=== PATIENT | male | born 1985 | race African-American/Black ===

== ENCOUNTER 2016-11-15 04:30 | Emergency (ER) | payer OTHER ==
[~2016-11-15] VITALS: Ht 170.2 cm; Wt 70.3 kg
--- NOTE | ~2016-11-15 | EKG ---
[place] [address] [facility] [employer] [address] ELECTROCARDIOGRAM REPORT Name: LEV HENDRICKS [facility] #: [facility] [id number] Admission: 11/15/16 Attend Phys: Discharge: 11/15/16 Date of : 89 Report #: [id number] THIS REPORT FOR: //name// [facility] ED Test Date: 2016-11-15 Test Time: 04:36:44 Pat Name: LEV HENDRICKS Department: Room: Gender: M Cell Room Supervisor: STEFANIE : 1985 Requested By: Leonard Hodge Order Number: [id number] MD: Devendra Houston Measurements Intervals [place] Rate: 93 P: 82 WI: 136 QRS: 79 QRSD: 72 T: 71 QT: 335 QTc: 417 Interpretive Statements Sinus rhythm No significant abnormality No previous ECG available for comparison Electronically Signed On 11-16-2016 7:47:14 CDT by Devendra Houston [email or web address] <ELECTRONICALLY SIGNED> By: Devendra Houston MD, [facility] 11/16/16 0747 [id number] [id number] Devendra Houston MD, FACC /EPI
[~2016-11-15 04:30] MED LIST: ACYCLOVIR 800800 MG PO; CIPROFLOXACIN500 M1 PO; IBUPROFEN 800800 MG PO; NORCO 5-325 TA1 EACH PO
[2016-11-15 04:54] LABS: ABSOLUTE NEUTROPHILS 5.5 thou/uL (1.4-8.2); BASOPHILS 0.9 % (0.0-2.0); EOSINOPHILS 0.9 % (0.0-3.0); HEMATOCRIT 44.9 % (42.0-52.0); HEMOGLOBIN 15.6 gm/dL (14.0-18.0); LYMPHOCYTES 35.6 % (24.0-44.0); MCHC 34.8 g/dL (28.0-37.0); MCV 92.1 fL (80.0-100.0); MONOCYTES 8.6 % (1.0-8.0); PLATELET COUNT 186 thou/uL (150-400); RBC 4.87 mil/uL (4.50-6.00); RDW 12.7 % (10.5-14.5); WBC 10.1 thou/uL (4.0-11.0)
[2016-11-15 04:57] LABS: MANUAL DIFF NO
[2016-11-15 05:10] LABS: ALBUMIN 4.5 g/dL (3.4-5.0); ALKALINE PHOSPHATASE 72 U/L (46-116); ANION GAP 13 mmol/L (7-16); BUN 11 mg/dL (7-18); CALCIUM 9.7 mg/dL (8.5-10.1); CHLORIDE 100 mmol/L (98-107); CO2 24 mmol/L (21-32); CREATININE 1.2 mg/dL (0.7-1.3); GLUCOSE 118 mg/dL (74-106); POTASSIUM 3.5 mmol/L (3.5-5.1); SALICYLATE 3.3 mg/dL (2.8-20.0); SGOT 23 U/L (15-37); SGPT 25 U/L (30-65); SODIUM 137 mmol/L (136-145); TOTAL BILIRUBIN 0.6 mg/dL (<0.1-1.0); TOTAL PROTEIN 8.2 g/dL (6.4-8.2); TROPONIN-I < 0.04 ng/mL (<0.04-0.07)
[2016-11-15 05:17] LABS: ACETAMINOPHEN < 2 ug/mL (10-30)
[2016-11-15] MEDS ORDERED: NAPROXEN375 MG PO (05:26)
[2016-11-15 05:28] LABS: URINE BILIRUBIN NEGATIVE (Negative); URINE BLOOD NEGATIVE (Negative); URINE COLOR YELLOW; URINE GLUCOSE-RANDOM* NEGATIVE (Negative); URINE KETONES NEGATIVE (Negative); URINE LEUKOCYTES-REFLEX NEGATIVE (Negative); URINE PROTEIN (DIPSTICK) NEGATIVE (Negative); URINE SPECIFIC GRAVITY <= 1.005 (1.003-1.035); URINE UROBILINOGEN 0.2 E.U./dl (0.2-1.0)
[2016-11-15 05:33] LABS: AMP/METHAMP POSITIVE (Negative); BARBITURATES Negative (Negative); BENZODIAZEPINES Negative (Negative); COCAINE Negative (Negative); METHADONE Negative (Negative); OPIATES Negative (Negative); PCP Negative (Negative); THC POSITIVE (Negative)
[2016-11-15 05:43] VITALS: BP 110/81
== END 2016-11-15 05:44 | disposition home or self-care (01) ==
LOC: ER 04:30
PROVIDERS: Emergency Medicine
DX: R07.89 Other chest pain (principal); F19.10 Other psychoactive substance abuse, uncomplicated; J45.909 Unspecified asthma, uncomplicated; Z91.013 Allergy to seafood; Z91.041 Radiographic dye allergy status; F17.210 Nicotine dependence, cigarettes, uncomplicated; F10.99 Alcohol use, unspecified with unspecified alcohol-induced disorder

== ENCOUNTER 2019-11-10 09:10 | Inpatient (IN) | payer OTHER ==
[~2019-11-10] VITALS: Ht 170.2 cm; Wt 70.3 kg
[~2019-11-10 09:10] MED LIST changes: +NAPROXEN375 MG PO
[2019-11-10 09:11] VITALS: BP 123/78
[2019-11-10 10:04] LABS: ABSOLUTE NEUTROPHILS 12.1 thou/uL (1.4-8.2); BASOPHILS 0.8 % (0.0-2.0); EOSINOPHILS 2.1 % (0.0-3.0); HEMOGLOBIN 13.6 gm/dL (14.0-18.0); LYMPHOCYTES 17.9 % (24.0-44.0); MCH 31.5 pg (26.0-34.0); MCV 92.5 fL (80.0-100.0); MONOCYTES 5.4 % (1.0-8.0); PLATELET COUNT 286 thou/uL (150-400); POLYS 73.8 % (36.0-66.0); RBC 4.32 mil/uL (4.50-6.00); RDW 12.8 % (10.5-14.5); WBC 16.4 thou/uL (4.0-11.0)
[2019-11-10 10:19] LABS: ANION GAP 12 mmol/L (7-16); BUN 17 mg/dL (7-18); CALCIUM 9.4 mg/dL (8.5-10.1); CHLORIDE 101 mmol/L (98-107); CO2 25 mmol/L (21-32); CREATININE 1.1 mg/dL (0.7-1.3); GLUCOSE 146 mg/dL (74-106); SODIUM 138 mmol/L (136-145)
[2019-11-10 10:20] LABS: POTASSIUM 4.1 mmol/L (3.5-5.1)
[2019-11-10 10:25] LABS: ALBUMIN 3.7 g/dL (3.4-5.0); DIRECT BILIRUBIN < 0.1 mg/dL (<0.1-0.2); SGOT 25 U/L (15-37); SGPT 31 U/L (30-65); TOTAL BILIRUBIN 0.4 mg/dL (<0.1-1.0); TOTAL PROTEIN 7.5 g/dL (6.4-8.2)
[2019-11-10 12:52] VITALS: BP 127/80
[2019-11-10 14:17] VITALS: BP 131/87
[2019-11-10 16:10] VITALS: BP 123/77
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
[2019-11-10 19:59] VITALS: BP 134/83
--- NOTE | 2019-11-11 01:19 | NUR ---
PT AOX4. PT LETHARGIC AND DROWSY DURING ASSESSMENT. PT REPORTS PAIN IN RIGHT THIGH. PT RECEIVING PRN PO NORCO Q4HR. PT TOLERATING PO INTAKE OF FLUIDS AND REGULAR DIET, PT NPO AT MIDNIGHT. PT REFUSING WOUND CARE AT HS, REQUESTS WOUND CARE IN AM. PT NOTED TO BE INDEPENDENT WITH REPOSITIONING. PT ENCOURAGED TO NOTIFY STAFF FOR ALL NEEDS. CALL LIGHT WITHIN REACH, BED IN LOWEST POSITION, BED ALARM ON. WILL CONTINUE TO MONITOR.
[2019-11-11 04:35] VITALS: BP 121/65
[2019-11-11 05:32] LABS: ABSOLUTE NEUTROPHILS 5.6 thou/uL (1.4-8.2); BASOPHILS 0.7 % (0.0-2.0); HEMATOCRIT 39.8 % (42.0-52.0); HEMOGLOBIN 13.5 gm/dL (14.0-18.0); LYMPHOCYTES 34.8 % (24.0-44.0); MCH 31.6 pg (26.0-34.0); MCHC 33.9 g/dL (28.0-37.0); MCV 93.2 fL (80.0-100.0); MONOCYTES 8.8 % (1.0-8.0); PLATELET COUNT 291 thou/uL (150-400); POLYS 52.7 % (36.0-66.0); RBC 4.27 mil/uL (4.50-6.00); WBC 10.6 thou/uL (4.0-11.0)
[2019-11-11 05:45] LABS: CALCIUM 8.2 mg/dL (8.5-10.1); CREATININE 0.9 mg/dL (0.7-1.3); MAGNESIUM 1.9 mg/dL (1.8-2.4)
[2019-11-11 08:32] VITALS: BP 112/70
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
[2019-11-11 15:06] VITALS: BP 136/91
[2019-11-11 15:22] LABS: URINE BILIRUBIN NEGATIVE (Negative); URINE BLOOD NEGATIVE (Negative); URINE CLARITY CLEAR; URINE COLOR YELLOW; URINE GLUCOSE-RANDOM* NEGATIVE (Negative); URINE KETONES NEGATIVE (Negative); URINE LEUKOCYTES-REFLEX NEGATIVE (Negative); URINE NITRITE-REFLEX NEGATIVE (Negative); URINE PROTEIN (DIPSTICK) NEGATIVE (Negative); URINE UROBILINOGEN 0.2 E.U./dl (0.2-1.0)
[2019-11-11 15:31] LABS: AMP/METHAMP POSITIVE (Negative); BARBITURATES Negative (Negative); BENZODIAZEPINES Negative (Negative); COCAINE Negative (Negative); METHADONE Negative (Negative); OPIATES Negative (Negative); PCP Negative (Negative)
--- NOTE | 2019-11-11 18:04 | NUR ---
Assumed patient care at 0715. Vital signs have been stable. LSCTA, abdomen is soft and non-tender, BS x's 4. Patient was given Morphine Sulfate per IV push at 0915 for "level ten" right leg pain. Medication effective, as he slept until surgery. Patient had a I&D done at noon with Dr Mercado. He returned to the unit at 1445. He was sedate at this time. He awakened, requested and received Hydromorphone 0.5mg per IV push at 1511. This medication was effective until 1600. Patient consumed 100% of a late lunch and dinner. Will continue to monitor and report to on-coming nurse.
[2019-11-11 19:32] VITALS: BP 128/70
--- NOTE | 2019-11-11 22:00 | NUR ---
PT AOX4, DROWSY DURING ASSESSMENT. PT REPORTS MILD PAIN 2/10 IN RIGHT THIGH. PT HAS PRN PO NORCO Q4HR AND PRN IV DILAUDID Q2HR AVAILABLE FOR PAIN MANAGEMENT. PT TOLERATING PO INTAKE OF FLUIDS AND REGULAR DIET WITHOUT ISSUE. PT AMBULATING WITH WALKER AND STBA TO BATHROOM. PT DENIES HAVING BM OR FLATUENCE, HYPOACTIVE BOWEL SOUNDS. PROVIDED EDUCATION IN REGARDS TO FREQUENT REPOSITIONING AND FLUID INTAKE TO PROMOTE PERISTALSIS. ENCOURAGED PT TO NOTIFY STAFF FOR ALL NEEDS. CALL LIGHT WITHIN REACH, BED IN LOWEST POSITION, BED ALARM ON. WILL CONTINUE TO MONITOR.
--- NOTE | 2019-11-12 03:13 | NUR ---
ASSUMED PT CARE FROM [facility] AT 2300. PO PAIN MEDS GIVEN. ANTIBIOTICS INFUSING PER ORDER. USES URINAL AT BEDSIDE. ATE A SANDWICH. PT HAS BEEN SLEEPING SINCE. WILL CONTINUE TO MONITOR.
[2019-11-12 05:48] VITALS: BP 131/68
[2019-11-12 07:53] VITALS: BP 134/81
--- NOTE | 2019-11-12 13:55 | NUR ---
CM ATTEMPTED PHONE CALLS TO PT'S ROOM AGAIN NUMEROUS TIME THIS DAY WITH NO RESPONSE. TERENCE T OCONTINUE TO ATTEMPT TO ASSESS PT.
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
[2019-11-12 17:09] VITALS: BP 120/59
--- NOTE | 2019-11-12 18:32 | NUR ---
Assumed care of pt at 0700. Pain controlled with prn pain meds. Wound team changed pt/s dressing. An extra one-time IV dilaudid ordered for dressing change per order. Wound pictures in chart. IV antibiotics infusing. Wound drain flushed per orders. Call light within reach. Will continue to monitor.
[2019-11-12 20:20] VITALS: BP 132/82
--- NOTE | 2019-11-13 04:06 | NUR ---
ASSESSED AT START OF SHIFT. PT A&OX4. DRESSING IN RT THIGH INTACT. PAIN MEDS GIVEN FOR PAIN OF 02/19. PT SLEPT AFTERWARDS. IV INTACT AND ABX INFUISING. URINAL AT BEDSIDE AND PT UP WITH SBA RAINER WALKER TO THE BATHROOM. CALL LIGHT IN REACH AND FALL PREC IN PLACE. WILL CONT WITH POC TILL EOS.
[2019-11-13 05:30] VITALS: BP 123/77
[2019-11-13 08:10] VITALS: BP 132/85
--- NOTE | 2019-11-13 12:16 | NUR ---
PT CARE ASSUMED AT 0700. A&Ox4. PT IS SLEEPING ALL DAY AND IS NOT COMPLAINING OF ANY PAIN. WOUNDCARE IS DONE BY WOUNDCARE TEAM. PT USES URINAL. PT RECEIVING IV ANTIBIOTICS. IV SITE IS PATENT WITH NO REDNESS OR EDEMA. RECEIVING DIET SUPLEMENTS. CASE MANAGEMENT ON BOARD. FALL PROTOCOL IN PLACE. CALL LIGHT IN REACH.
--- NOTE | 2019-11-13 14:23 | NUR ---
CM CALLED AND SPOKE WITH PT THIS AFTERNOON AFTER HE WAS SEEN BY OT MOBILITY LIMITED BY PAIN AT TIME OF ASSESSMENT. CM ASKED IF PT HAD BEEN ABLE TO GET AHOLED OF FRIEND HE HAD BEEN STAYING WITH RADIO INTERFERENCE EXPERT HE INDICATED HE HADN'T BEEN. CM ASKED IF PT MIGHT BE ABLE TO STAY WITH HIS MOM WHO IS A CONTACT UPON AND HE INDICATED SHE LIVES IN A FACILITY. CM INDICATED THAT DC WOULD LIKELY BE ANTICPATED IN THE NEXT DAY OR TWO AND ASKED IF CM SHOULD ASSIST IN DETERMINING IF ANY LOCAL HOMELESS SHELTHERS HAD OPENINGS AND PT INDICATED THAT HE WOULD TRY HARDER TO CONTACT FRIENDS. THAT HE FEARED THAT WOULD BE MORE LIKELY TO DEVELOP COVID-19 IN HOMLESS SHELTHER. PT SIGNED DOCUMENTATION FOR ASSIST WITH MEDICAID APPLICATION PROCESS. CM TO FOLLOW INDICATED WITH DC PLANNING.
[2019-11-13 14:47] VITALS: BP 132/85
[2019-11-13 20:35] VITALS: BP 132/82
--- NOTE | 2019-11-14 06:07 | NUR ---
RECIEVED CARE OF THIS PATIENT AT 1900. PATIENT ALERT AND ORIENTED X4. C/O PAINX1. MED GIVEN WITH GOOD RESULTS. DRESSING ON R LEG D/I. USES URINAL. IV IN LAC PATENT. UP WITH SBA AND WALKER. SLEPT MOST OF NIGHT.
[2019-11-14 07:18] VITALS: BP 139/79
[2019-11-14] MEDS ORDERED: GENTAMICIN SULF15 GM TOP ×2 (09:20→10:02)
[2019-11-14] MEDS ORDERED: TRAMADOL 50 MG50 MG PO ×2 (09:20→10:02)
[2019-11-14 10:56] VITALS: BP 137/90
[2019-11-14] MEDS ORDERED: BACITRACIN Z28.35 GM TOP (14:48)
[2019-11-14] MEDS ORDERED: AUGMENTIN 875-1 EACH PO ×2 (14:57→15:14)
[2019-11-14 14:58] VITALS: BP 137/90
[2019-11-14 15:10] VITALS: BP 125/83
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
[2019-11-14 16:50] VITALS: BP 137/90
== END 2019-11-14 17:30 | disposition home or self-care (01) | DRG 854 ==
LOC: ER 09:10 → EROBS 12:51 → 4S 12:51
PROVIDERS: Emergency Medicine; Nurse Practitioner; ADMIT Hospitalist
PROC: 0KBS0ZZ Excision of Right Lower Leg Muscle, Open Approach (ICD-10-PCS; principal; 2019-11-11)
DX: A41.9 Sepsis, unspecified organism (principal); L03.115 Cellulitis of right lower limb; J45.909 Unspecified asthma, uncomplicated; F19.10 Other psychoactive substance abuse, uncomplicated; F17.210 Nicotine dependence, cigarettes, uncomplicated; Z28.21 Immunization not carried out because of patient refusal; Z88.8 Allergy status to other drugs, medicaments and biological substances; Z91.041 Radiographic dye allergy status; Z79.899 Other long term (current) drug therapy
CPT/HCPCS: 10195; 50010; 50101; 50386; 50403; 56525; 62110; 62900; 70005